=== PATIENT | male | born 1965 | race Caucasian/White ===

== ENCOUNTER → 2016-11-07 | Outpatient (CLI) | payer OTHER ==
[~2016-11-07] MED LIST: LACT1CAP35 PO; MULT-658 PO; SULF1TAB23 PO; TADA5TAB2 PO
[2016-11-07 11:32] LABS: HEMOGLOBIN 16.3 g/dL (13.7-18.0)
[2016-11-07 13:58] LABS: ASPARTATE AMINO TRANSFERASE 20 U/L (15-37); BLOOD UREA NITROGEN 12 mg/dL (7-18)
[2016-11-08 13:06] LABS: PSA SERIAL MONITOR 1.3 ng/mL (0.0-4.0)
[2016-11-09 15:07] LABS: TESTOSTERONE TOTAL 292 ng/dL (348-1197)
== END | disposition home or self-care (01) ==
LOC: LAB 11:16
PROVIDERS: ATTEND Family Medicine
DX: Z13.220 Encounter for screening for lipoid disorders (principal); Z12.5 Encounter for screening for malignant neoplasm of prostate; R53.83 Other fatigue; I10 Essential (primary) hypertension
CPT/HCPCS: 36415; 80053; 80061; 84153; 84402; 84403; 84443; 85025; G0103